=== PATIENT | male | born 1975 | race Caucasian/White ===

== ENCOUNTER 2021-03-04 03:46 | Emergency (ER) | payer MEDICAID ==
[~2021-03-04] VITALS: Ht 180.3 cm; Wt 71.4 kg
[2021-03-04 04:49] VITALS: BP 111/81
== END 2021-03-04 05:15 | disposition home or self-care (01) ==
LOC: ED 04:16
DX: H66.92 Otitis media, unspecified, left ear (principal)
CPT/HCPCS: 99283

== ENCOUNTER 2021-03-11 14:26 | Emergency (ER) | payer MEDICAID ==
[~2021-03-11] VITALS: Ht 182.9 cm; Wt 69.8 kg
[2021-03-11 14:31] VITALS: BP 129/84
--- NOTE | 2021-03-11 15:00 | NUR ---
first contact with pt. pt stated"i wanna check my left year and i feel anxiety. i wanna see psych dr for evaluation today" pt denies any physical complaints. pt denies si/hi at this time. pt's aox4. resps even and unlabored.
--- NOTE | 2021-03-11 15:50 | NUR ---
Patient given discharge instructions and they have confirmed that they understand the instructions. Patient ambulatory with steady gait.
== END 2021-03-11 15:51 | disposition home or self-care (01) ==
LOC: ED 15:44
DX: F10.10 Alcohol abuse, uncomplicated (principal); F15.10 Other stimulant abuse, uncomplicated; F41.1 Generalized anxiety disorder; F17.210 Nicotine dependence, cigarettes, uncomplicated; R94.31 Abnormal electrocardiogram [ECG] [EKG]; Z72.9 Problem related to lifestyle, unspecified; Y90.0 Blood alcohol level of less than 20 mg/100 ml
CPT/HCPCS: 93005; 99283; 99406

== ENCOUNTER 2021-03-20 16:40 | Emergency (ER) | payer MEDICAID ==
[~2021-03-20] VITALS: Ht 180.3 cm; Wt 70.0 kg
[2021-03-20 16:48] VITALS: BP 111/75
--- NOTE | 2021-03-20 18:10 | NUR ---
SEMICONDUCTOR EQUIPMENT TECHNICIAN: PT TO ROOM FROM LOBBY
== END 2021-03-20 19:38 | disposition home or self-care (01) ==
LOC: ED 19:30
DX: S93.401A Sprain of unspecified ligament of right ankle, initial encounter (principal); L03.115 Cellulitis of right lower limb; Z59.0 Homelessness; X58.XXXA Exposure to other specified factors, initial encounter; Y93.89 Activity, other specified; Y92.89 Other specified places as the place of occurrence of the external cause; Y99.8 Other external cause status
CPT/HCPCS: 99283

== ENCOUNTER 2021-03-26 14:24 | Observation (INO) | payer MEDICAID ==
[~2021-03-26] VITALS: Ht 182.9 cm; Wt 68.9 kg
[2021-03-26 14:27] VITALS: BP 126/87
--- NOTE | 2021-03-26 14:55 | NUR ---
BREAK RN- pT BROUGHT BACK FROM TRIAGE FOR SI. JASON MOLDER SWEEP AT BEDSIDE FOR EVAL.
[2021-03-26 15:36] LABS: BASOPHILS % (AUTO) 1 % (0-1); EOSINOPHILS % (AUTO) 1 % (1-7); LYMPHOCYTES % (AUTO) 32 % (22-44); MEAN CORPUSCULAR HEMOGLOBIN 30.4 pg (27.5-34.5); MEAN CORPUSCULAR HGB CONC 34.7 g/dL (33.2-36.2); MONOCYTES % (AUTO) 12 % (2-9); NEUTROPHILS % (AUTO) 54 % (42-75); PLATELET COUNT 347 x10^3/uL (130-400); RED BLOOD COUNT 4.89 x10^6/uL (4.38-5.82); RED CELL DISTRIBUTION WIDTH 12.7 % (9.4-14.8)
[2021-03-26 15:38] LABS: MD NO
[2021-03-26 15:48] LABS: ALBUMIN 3.9 g/dL (3.4-5.0); ANION GAP 5 mmol/L (5-15); CALCIUM 8.6 mg/dL (8.5-10.1); CHLORIDE 103 mmol/L (98-107); CREATININE 0.99 mg/dL (0.7-1.3); SALICYLATE LEVEL < 1.7 mg/dL (2.8-20.0)
[2021-03-26] MEDS ORDERED: TRAZODONE 100MG TABLET PO PRN (16:00)
[2021-03-26] MEDS ORDERED: FLUOXETINE HCL 20 MG CAPSULE PO SCH (16:00)
[2021-03-26] MEDS ORDERED: FLUOXETINE HCL 20 MG CAPSULE ONE (16:02)
[2021-03-26] MEDS ORDERED: TRAZODONE 100MG TABLET ONE (16:02)
--- NOTE | 2021-03-26 16:07 | NUR ---
PT PROVIDED W/ SI DINNER TRAY. PT RESTING ON [facility]. JOSE. SITTER REMAINS AT BEDSIDE. ROOM REMAINS SECURE.
[2021-03-26] MEDS ORDERED: CLON0.1T22 PO (16:20)
[2021-03-26] MEDS ORDERED: FLUO20CA19 PO (16:20)
[2021-03-26] MEDS ORDERED: TRAZ-175 PO (16:20)
[2021-03-26 16:37] LABS: AMPHETAMINE SCREEN, URINE Positive (Negative); BARBITURATE SCREEN, URINE Negative (Negative); BENZODIAZEPINE SCREEN, URINE Negative (Negative); CANNABINOID SCREEN, URINE Negative (Negative); COCAINE SCREEN, URINE Negative (Negative); METHADONE SCREEN, URINE Negative (Negative); OPIATE SCREEN, URINE Negative (Negative)
--- NOTE | 2021-03-26 17:16 | NUR ---
PT RESTING ON MALA. JOSE. SITTER REMAINS AT BEDSIDE. ROOM REMAINS SECURE.
--- NOTE | 2021-03-26 17:32 | NUR ---
REPORT GIVEN TO DENIZ, RECEIVING RN ON U. ALL QUESTIONS ANSWERED. AWAITING PT TRANSPORT.
[2021-03-26] MEDS ORDERED: CEFAZOLIN 1,000 MG ONE (17:46)
[2021-03-26] MEDS ORDERED: CEFAZOLIN 1,000 MG IM ONE (18:00)
== END 2021-03-26 18:13 | disposition home or self-care (01) ==
LOC: ED 15:26 → EDIP 16:08
PROVIDERS: ADMIT Emergency Medicine; ATTEND Emergency Medicine
DX: F32.9 Major depressive disorder, single episode, unspecified (principal); Z20.822 Contact with and (suspected) exposure to COVID-19; F15.10 Other stimulant abuse, uncomplicated; R45.851 Suicidal ideations; S61.512A Laceration without foreign body of left wrist, initial encounter; L03.115 Cellulitis of right lower limb; F41.1 Generalized anxiety disorder; F17.210 Nicotine dependence, cigarettes, uncomplicated; F12.90 Cannabis use, unspecified, uncomplicated; Z79.899 Other long term (current) drug therapy; Z91.5 Personal history of self-harm; Z59.0 Homelessness; W26.9XXA Contact with unspecified sharp object(s), initial encounter; Y93.89 Activity, other specified; Y92.89 Other specified places as the place of occurrence of the external cause
CPT/HCPCS: 36415; 80048; 80299; 80307; 80320; 80329; 82040; 85025; 87426; 96372; 99284; G0378; J0690; G0480

== ENCOUNTER 2021-03-26 16:53 | Inpatient (IN) | payer MEDICAID ==
[~2021-03-26] VITALS: Ht 182.9 cm; Wt 67.0 kg
[~2021-03-26 16:53] MED LIST: CLON0.1T22 PO; FLUO20CA19 PO; TRAZ-175 PO
[2021-03-26] MEDS ORDERED: BISACODYL 10 MG SUPP PR PRN (17:00)
[2021-03-26] MEDS ORDERED: POLYETHYLENE GLYCOL 17 GM PACKET PO PRN (17:00)
[2021-03-26] MEDS ORDERED: ONDANSETRON ODT 4 MG PO PRN (17:00)
[2021-03-26] MEDS ORDERED: DOCUSATE 100 MG CAPSULE PO PRN (17:00)
[2021-03-26 18:37] LABS: MICROSCOPIC INDICATED
[2021-03-26 19:21] VITALS: BP 111/70
[2021-03-26] MEDS: TRAZODONE 100MG TABLET PO PRN (20:38)
[2021-03-27 05:58] LABS: CHOL/HDL RATIO 2.5
[2021-03-27 07:24] VITALS: BP 114/71
[2021-03-27] MEDS: ACETAMINOPHEN 325 MG TABLET PO PRN ×2 (08:48→20:04)
[2021-03-27] MEDS ORDERED: NICOTINE 7 MG/24 HR PATCH.TD24 TD SCH (09:00)
[2021-03-27] MEDS: FLUOXETINE 10 MG CAP PO SCH (11:48)
[2021-03-27 19:47] VITALS: BP 126/77
[2021-03-27] MEDS: AMOXICILLIN/CLAV 875-125MG TABLET PO SCH (20:04)
[2021-03-27] MEDS: TRAZODONE 100MG TABLET PO PRN (20:33)
[2021-03-28 07:56] VITALS: BP 105/67
[2021-03-28] MEDS: FLUOXETINE 10 MG CAP PO SCH (09:01)
[2021-03-28] MEDS: AMOXICILLIN/CLAV 875-125MG TABLET PO SCH ×2 (09:01→20:43)
[2021-03-28] MEDS: ACETAMINOPHEN 325 MG TABLET PO PRN ×2 (09:04→12:39)
[2021-03-28 18:39] VITALS: BP 129/77
[2021-03-28] MEDS: TRAZODONE 100MG TABLET PO PRN (20:49)
[2021-03-29 07:45] VITALS: BP 116/80
[2021-03-29] MEDS: AMOXICILLIN/CLAV 875-125MG TABLET PO SCH ×2 (08:20→20:44)
[2021-03-29] MEDS: FLUOXETINE 10 MG CAP PO SCH (08:20)
[2021-03-29] MEDS: ACETAMINOPHEN 325 MG TABLET PO PRN (08:21)
[2021-03-29] MEDS: LACTOBACILLUS CHEW TABLET PO SCH ×2 (15:35→20:44)
[2021-03-29 19:52] VITALS: BP 110/72
[2021-03-29] MEDS: TRAZODONE 100MG TABLET PO PRN (20:44)
[2021-03-30 07:38] VITALS: BP 112/73
[2021-03-30] MEDS: ACETAMINOPHEN 325 MG TABLET PO PRN (08:55)
[2021-03-30] MEDS: LACTOBACILLUS CHEW TABLET PO SCH ×3 (08:56→21:16)
[2021-03-30] MEDS: FLUOXETINE 10 MG CAP PO SCH (08:56)
[2021-03-30 19:32] VITALS: BP 116/76
[2021-03-30] MEDS: TRAZODONE 100MG TABLET PO PRN (21:16)
[2021-03-31 07:45] VITALS: BP 112/74
[2021-03-31] MEDS: LACTOBACILLUS CHEW TABLET PO SCH ×3 (09:19→20:32)
[2021-03-31] MEDS: FLUOXETINE 10 MG CAP PO SCH (09:19)
[2021-03-31] MEDS: ACETAMINOPHEN 325 MG TABLET PO PRN ×2 (14:58→20:32)
[2021-03-31 19:28] VITALS: BP 110/68
[2021-04-01 07:39] VITALS: BP 104/68
[2021-04-01] MEDS: FLUOXETINE 10 MG CAP PO SCH (08:13)
[2021-04-01] MEDS: LACTOBACILLUS CHEW TABLET PO SCH ×3 (08:13→20:35)
[2021-04-01] MEDS: ACETAMINOPHEN 325 MG TABLET PO PRN (14:34)
[2021-04-01 19:30] VITALS: BP 112/70
[2021-04-01] MEDS: TRAZODONE 100MG TABLET PO PRN (21:50)
[2021-04-02 07:46] VITALS: BP 99/64
[2021-04-02] MEDS ORDERED: ACID1TAB7 PO (08:55)
[2021-04-02] MEDS ORDERED: FLUO20CA23 PO (08:55)
[2021-04-02] MEDS ORDERED: TRAZ-175 PO (08:55)
[2021-04-02] MEDS ORDERED: FLUOXETINE HCL 20 MG CAPSULE PO SCH (09:00)
[2021-04-02] MEDS: LACTOBACILLUS CHEW TABLET PO SCH (09:23)
== END 2021-04-02 09:50 | disposition home or self-care (01) | DRG 885 ==
LOC: 3E 18:24
PROVIDERS: ADMIT Psychiatry & Neurology Psychosomatic Medicine; ATTEND Psychiatry & Neurology Psychosomatic Medicine
DX: F33.2 Major depressive disorder, recurrent severe without psychotic features (principal); F15.20 Other stimulant dependence, uncomplicated; K52.1 Toxic gastroenteritis and colitis; L03.115 Cellulitis of right lower limb; L03.116 Cellulitis of left lower limb; F17.200 Nicotine dependence, unspecified, uncomplicated; F12.10 Cannabis abuse, uncomplicated; F41.9 Anxiety disorder, unspecified; T36.95XA Adverse effect of unspecified systemic antibiotic, initial encounter; Z59.0 Homelessness; Y92.89 Other specified places as the place of occurrence of the external cause
CPT/HCPCS: 36415; 71045; 80061; 81001; 86592; 86704; 86705; 86706; 86707; 86803; 87340; 87350; 87806; 93005; G0475

== ENCOUNTER 2021-05-10 12:43 | Emergency (ER) | payer MEDICAID ==
[~2021-05-10] VITALS: Ht 180.3 cm; Wt 68.6 kg
[~2021-05-10 12:43] MED LIST changes: +ACID1TAB7 PO; +FLUO20CA23 PO
[2021-05-10 13:00] VITALS: BP 116/74
--- NOTE | 2021-05-10 13:16 | NUR ---
PT AMBULATORY TO ROOM FROM TRIAGE, PT CHANGED INTO GOWN. ALL BELONGINGS DOCUMENTED AND PLACED IN LOCKED LOCKER. PT IN SAFE ENVIRONMENT. SITTER IN VIEW.
[2021-05-10 13:17] LABS: BASOPHILS % (AUTO) 1 % (0-1); EOSINOPHILS % (AUTO) 3 % (1-7); LYMPHOCYTES % (AUTO) 34 % (22-44); MEAN CORPUSCULAR HGB CONC 34.4 g/dL (33.2-36.2); MEAN PLATELET VOLUME 7.5 fL (7.4-10.4); MONOCYTES % (AUTO) 7 % (2-9); NEUTROPHILS % (AUTO) 56 % (42-75); PLATELET COUNT 226 x10^3/uL (130-400); RED BLOOD COUNT 4.66 x10^6/uL (4.38-5.82); RED CELL DISTRIBUTION WIDTH 13.4 % (9.4-14.8)
[2021-05-10 13:27] LABS: ALANINE AMINOTRANSFERASE 32 U/L (12-78); ALBUMIN 3.9 g/dL (3.4-5.0); ANION GAP 4 mmol/L (5-15); CALCIUM 8.3 mg/dL (8.5-10.1); CHLORIDE 110 mmol/L (98-107)
[2021-05-10 13:29] LABS: ALKALINE PHOSPHATASE 75 U/L (45-117); BILIRUBIN,TOTAL 0.3 mg/dL (0.2-1.0); CREATININE 0.84 mg/dL (0.7-1.3); TOTAL PROTEIN 7.1 g/dL (6.4-8.2)
[2021-05-10 13:30] LABS: SALICYLATE LEVEL < 1.7 mg/dL (2.8-20.0)
[2021-05-10] MEDS ORDERED: FLUOXETINE HCL 20 MG CAPSULE ONE (13:58)
[2021-05-10] MEDS ORDERED: FLUOXETINE HCL 20 MG CAPSULE PO SCH (14:00)
--- NOTE | 2021-05-10 14:00 | NUR ---
pt medicated per emar. sitter in view, pt in safe environment. pt coopertive with er staff
[2021-05-10 14:18] LABS: AMPHETAMINE SCREEN, URINE Positive (Negative); BARBITURATE SCREEN, URINE Negative (Negative); BENZODIAZEPINE SCREEN, URINE Negative (Negative); CANNABINOID SCREEN, URINE Positive (Negative); COCAINE SCREEN, URINE Negative (Negative); METHADONE SCREEN, URINE Negative (Negative); OPIATE SCREEN, URINE Negative (Negative)
--- NOTE | 2021-05-10 15:35 | NUR ---
SPOKE WITH [facility] [[email or web address]], STAFF EVALUATING FOR PLACEMENT AT THIS TIME.
--- NOTE | 2021-05-10 15:45 | NUR ---
BREAK RN: PT RESTING IN ROOM. NO ACUTE DISTRESS NOTED. SITTER AT DOOR.
--- NOTE | 2021-05-10 16:06 | NUR ---
BREAK RN: COVID SWAB SENT
--- NOTE | 2021-05-10 16:47 | NUR ---
PT RESTING ON GURNEY, RESPIRATIONS EVEN AND UNLABORED. NADN. PT COOPERATIVE WITH ED STAFF. SITTER IN VIEW. PT IN SAFE ENVIRONMENT.
--- NOTE | 2021-05-10 17:08 | NUR ---
PT ACCEPTED BY SHANNAN Ramsey, PENDING COVID RESULTS. L2K FAXED TO [facility] PER STAFF REQUEST.
--- NOTE | 2021-05-10 17:40 | NUR ---
PT TO [facility], REPORT GIVEN TO SANDRO
[2021-05-10] MEDS ORDERED: TRAZODONE 50MG TABLET PO PRN (21:00)
== END 2021-05-10 17:52 ==
LOC: ED 13:24
DX: R45.851 Suicidal ideations (principal); F32.9 Major depressive disorder, single episode, unspecified; F17.210 Nicotine dependence, cigarettes, uncomplicated; F12.10 Cannabis abuse, uncomplicated; F15.10 Other stimulant abuse, uncomplicated; Z20.822 Contact with and (suspected) exposure to COVID-19
CPT/HCPCS: 36415; 80053; 80299; 80307; 80320; 80329; 85025; 87635; 99285; G0480

== ENCOUNTER 2021-05-10 17:39 | Inpatient (IN) | payer MEDICAID ==
[~2021-05-10] VITALS: Ht 180.3 cm; Wt 70.1 kg
[2021-05-10] MEDS ORDERED: ACETAMINOPHEN 325 MG TABLET PO PRN (18:00)
[2021-05-10] MEDS ORDERED: NICOTINE 7 MG/24 HR PATCH.TD24 TD SCH (18:00)
[2021-05-10] MEDS ORDERED: POLYETHYLENE GLYCOL 17 GM PACKET PO PRN (18:00)
[2021-05-10] MEDS ORDERED: DOCUSATE 100 MG CAPSULE PO PRN (18:00)
[2021-05-10] MEDS ORDERED: ONDANSETRON ODT 4 MG PO PRN (18:00)
[2021-05-10 18:17] VITALS: BP 103/60
[2021-05-10] MEDS ORDERED: PLEASE ENTER HEIGHT AND WEIGHT MC SCH (18:30)
[2021-05-10 19:21] VITALS: BP 111/68
[2021-05-10] MEDS: TRAZODONE 100MG TABLET PO PRN (21:01)
[2021-05-10] MEDS: LACTOBACILLUS CHEW TABLET PO SCH (21:01)
[2021-05-10 21:47] LABS: MICROSCOPIC NOT IND
[2021-05-11 06:13] LABS: CHOL/HDL RATIO 2.4; FREE T4 (FREE THYROXINE) 0.71 ng/dL (0.76-1.46)
[2021-05-11 07:40] VITALS: BP 106/63
[2021-05-11] MEDS: LACTOBACILLUS CHEW TABLET PO SCH ×2 (08:26→08:27)
[2021-05-11] MEDS: FLUOXETINE HCL 20 MG CAPSULE PO SCH (08:26)
[2021-05-11] MEDS ORDERED: NICOTINE 7 MG/24 HR PATCH.TD24 TD SCH (09:00)
[2021-05-11 19:10] VITALS: BP 101/65
[2021-05-12 07:30] VITALS: BP 109/67
[2021-05-12] MEDS: FLUOXETINE HCL 20 MG CAPSULE PO SCH (08:26)
[2021-05-12 19:38] VITALS: BP 103/66
[2021-05-12] MEDS: TRAZODONE 100MG TABLET PO PRN (21:09)
[2021-05-13 07:04] VITALS: BP 103/66
[2021-05-13] MEDS: FLUOXETINE HCL 20 MG CAPSULE PO SCH (08:30)
[2021-05-13 19:38] VITALS: BP 105/64
[2021-05-13] MEDS: TRAZODONE 100MG TABLET PO PRN (21:03)
[2021-05-14 07:04] VITALS: BP 103/61
[2021-05-14] MEDS: FLUOXETINE HCL 20 MG CAPSULE PO SCH (09:14)
[2021-05-14 19:48] VITALS: BP 103/60
[2021-05-14] MEDS: TRAZODONE 100MG TABLET PO PRN (21:10)
[2021-05-15 07:12] VITALS: BP 102/63
[2021-05-15] MEDS: FLUOXETINE HCL 20 MG CAPSULE PO SCH ×2 (08:15→09:09)
[2021-05-15] MEDS: HYDROXYZINE PAMOATE 50MG CAP PO PRN ×2 (09:10→20:34)
[2021-05-15 18:58] VITALS: BP 114/67
[2021-05-16 07:35] VITALS: BP_SYST 113; BP_SYST 114; BP_DIAS 67; BP_DIAS 72
[2021-05-16] MEDS: FLUOXETINE HCL 20 MG CAPSULE PO SCH (08:28)
[2021-05-16] MEDS ORDERED: TRAZ-175 PO (11:39)
[2021-05-16] MEDS ORDERED: HYDR50CA2 PO (11:39)
[2021-05-16] MEDS ORDERED: CLON0.1T22 PO (11:39)
[2021-05-16] MEDS ORDERED: FLUO20CA23 PO (11:39)
[2021-05-16] MEDS: HYDROXYZINE PAMOATE 50MG CAP PO PRN (12:18)
[2021-05-16 19:32] VITALS: BP 110/74
[2021-05-17 07:31] VITALS: BP 114/55
[2021-05-17] MEDS: FLUOXETINE HCL 20 MG CAPSULE PO SCH (08:27)
== END 2021-05-17 13:01 | disposition home or self-care (01) | DRG 885 ==
LOC: 3E 17:55
PROVIDERS: ADMIT Psychiatry & Neurology Psychosomatic Medicine; ATTEND Psychiatry & Neurology Psychosomatic Medicine
DX: F33.2 Major depressive disorder, recurrent severe without psychotic features (principal); F11.20 Opioid dependence, uncomplicated; F15.20 Other stimulant dependence, uncomplicated; R45.851 Suicidal ideations; F12.10 Cannabis abuse, uncomplicated; F41.9 Anxiety disorder, unspecified; F19.10 Other psychoactive substance abuse, uncomplicated; Z56.0 Unemployment, unspecified; F17.210 Nicotine dependence, cigarettes, uncomplicated; Z79.899 Other long term (current) drug therapy; Z59.0 Homelessness; Z91.5 Personal history of self-harm
CPT/HCPCS: 36415; 71045; 80061; 81003; 84439; 84443; 93005

== ENCOUNTER 2021-06-24 21:28 | Emergency (ER) | payer MEDICAID ==
[~2021-06-24] VITALS: Ht 180.3 cm; Wt 64.4 kg
[~2021-06-24 21:28] MED LIST changes: +HYDR50CA2 PO
--- NOTE | 2021-06-24 22:31 | NUR ---
ICE APPLIED TO LEFT HAND PER ORDER. HAND ELEVATED WELL.
[2021-06-24] MEDS ORDERED: CEPHALEXIN 500 MG CAPSULE ONE (22:57)
[2021-06-24] MEDS ORDERED: SULFAMETH./TRIMETHOPRIM DS 800MG/160MG TABLET ONE (22:57)
[2021-06-24] MEDS ORDERED: DIPH,PERTUSS(ACELL),TET VAC/PF 0.5 ML IM-VACC ONE ×2 (22:58→23:00)
[2021-06-24] MEDS ORDERED: CEPHALEXIN 500 MG CAPSULE PO ONE (23:00)
[2021-06-24] MEDS ORDERED: SULFAMETH./TRIMETHOPRIM DS 800MG/160MG TABLET PO ONE (23:00)
[2021-06-24 23:06] VITALS: BP 121/85
== END 2021-06-24 23:18 | disposition home or self-care (01) ==
LOC: ED 22:10
DX: L03.114 Cellulitis of left upper limb (principal); R21 Rash and other nonspecific skin eruption; F17.210 Nicotine dependence, cigarettes, uncomplicated; Z72.9 Problem related to lifestyle, unspecified; R00.0 Tachycardia, unspecified
CPT/HCPCS: 90471; 90715; 99283; 99406

== ENCOUNTER 2021-07-29 19:55 | Emergency (ER) | payer MEDICAID ==
[~2021-07-29] VITALS: Ht 180.3 cm; Wt 68.8 kg
[2021-07-30 00:19] VITALS: BP 136/92
== END 2021-07-30 00:23 | disposition home or self-care (01) ==
LOC: ED 23:59
DX: S62.366A Nondisplaced fracture of neck of fifth metacarpal bone, right hand, initial encounter for closed fracture (principal); F17.210 Nicotine dependence, cigarettes, uncomplicated; X58.XXXA Exposure to other specified factors, initial encounter; Y93.89 Activity, other specified; Y92.89 Other specified places as the place of occurrence of the external cause; Y99.8 Other external cause status
CPT/HCPCS: 29125; 99283; 99406

== ENCOUNTER 2021-08-02 22:05 | Observation (INO) | payer MEDICAID ==
[~2021-08-02] VITALS: Ht 180.3 cm; Wt 70.4 kg
--- NOTE | 2021-08-02 23:55 | NUR ---
upon doing patients assessment, patient states that he is suicidal. provider notified and patient moved to room 3. report given to merrill ramirez
--- NOTE | 2021-08-03 | NUR ---
PATIENT PLACED IN GOWN. ALL BELONGINGS PLACED IN BAG WITH LABEL AND LOCKED AWAY. ROOM IS SAFE. SI PRECAUTIONS MAINTAINED. PATIENT DENIES NEEDS AT THIS TIME. WILL CONTINUE TO MONITOR.
[2021-08-03 00:02] LABS: BASOPHILS % (AUTO) 0 % (0-1); EOSINOPHILS % (AUTO) 2 % (1-7); LYMPHOCYTES % (AUTO) 23 % (22-44); MEAN CORPUSCULAR HEMOGLOBIN 31.6 pg (27.5-34.5); MEAN PLATELET VOLUME 7.1 fL (7.4-10.4); MONOCYTES % (AUTO) 9 % (2-9); NEUTROPHILS % (AUTO) 66 % (42-75); PLATELET COUNT 214 x10^3/uL (130-400); RED BLOOD COUNT 4.24 x10^6/uL (4.38-5.82); RED CELL DISTRIBUTION WIDTH 13.2 % (9.4-14.8)
--- NOTE | 2021-08-03 00:09 | NUR ---
PATIENT UNABLE TO PROVIDE URINE SAMPLE AT THIS TIME. PATIENT PROVIDED WITH WATER.
[2021-08-03 00:11] LABS: ALBUMIN 3.4 g/dL (3.4-5.0); ANION GAP 5 mmol/L (5-15); CALCIUM 7.8 mg/dL (8.5-10.1); CHLORIDE 106 mmol/L (98-107)
[2021-08-03 00:14] LABS: ALANINE AMINOTRANSFERASE 54 U/L (12-78); ALKALINE PHOSPHATASE 78 U/L (45-117); BILIRUBIN,TOTAL 0.5 mg/dL (0.2-1.0); CREATININE 0.73 mg/dL (0.7-1.3); TOTAL PROTEIN 6.6 g/dL (6.4-8.2)
[2021-08-03 00:21] LABS: SALICYLATE LEVEL < 1.7 mg/dL (2.8-20.0)
--- NOTE | 2021-08-03 00:49 | NUR ---
REPORT GIVEN TO JOSUÉ LAU.
--- NOTE | 2021-08-03 01:00 | NUR ---
PATIENT RESTING IN BED, EVEN-UNLABORED RESPIRATIONS NOTED. SITTER WITHIN VIEW. LIGHTS DIMMED, BED IN LOWEST LOCKED POSITION. WILL CONTINUE TO MONITOR.
--- NOTE | 2021-08-03 02:00 | NUR ---
PATIENT RESTING IN BED, EVEN-UNLABORED RESPIRATIONS NOTED. SITTER WITHIN VIEW. LIGHTS DIMMED, BED IN LOWEST LOCKED POSITION. WILL CONTINUE TO MONITOR.
--- NOTE | 2021-08-03 03:00 | NUR ---
PATIENT RESTING IN BED, EVEN-UNLABORED RESPIRATIONS NOTED. SITTER WITHIN VIEW. LIGHTS DIMMED, BED IN LOWEST LOCKED POSITION. WILL CONTINUE TO MONITOR.
--- NOTE | 2021-08-03 04:00 | NUR ---
PATIENT RESTING IN BED, EVEN-UNLABORED RESPIRATIONS NOTED. SITTER WITHIN VIEW. LIGHTS DIMMED, BED IN LOWEST LOCKED POSITION. WILL CONTINUE TO MONITOR.
--- NOTE | 2021-08-03 05:00 | NUR ---
PATIENT RESTING IN BED, EVEN-UNLABORED RESPIRATIONS NOTED. SITTER WITHIN VIEW. LIGHTS DIMMED, BED IN LOWEST LOCKED POSITION. WILL CONTINUE TO MONITOR.
--- NOTE | 2021-08-03 06:14 | NUR ---
PATIENT RESTING IN BED, EVEN-UNLABORED RESPIRATIONS NOTED. SITTER WITHIN VIEW. LIGHTS DIMMED, BED IN LOWEST LOCKED POSITION. WILL CONTINUE TO MONITOR.
--- NOTE | 2021-08-03 06:53 | NUR ---
REPORT GIVEN TO ONCOMING RN.
--- NOTE | 2021-08-03 06:58 | NUR ---
RECEIVED REPORT FROM JEISON LAU RN. PT RESTING ON [facility] [place]. NADN. MACHADOTER REMAINS AT BEDSIDE. ROOM REMAINS SECURE.
--- NOTE | 2021-08-03 08:00 | NUR ---
UA COLLECTED, LABELED AND WALKED TO LAB.
[2021-08-03 08:22] VITALS: BP 117/63
--- NOTE | 2021-08-03 08:23 | NUR ---
PT PROVIDED W/ SI BREAKFAST TRAY. NADN. VSS. PT RESTING ON GURNEY. SITTER REMAINS AT BEDSIDE. ROOM REMAINS SECURE.
[2021-08-03 08:43] LABS: AMPHETAMINE SCREEN, URINE Positive (Negative); BARBITURATE SCREEN, URINE Negative (Negative); BENZODIAZEPINE SCREEN, URINE Negative (Negative); CANNABINOID SCREEN, URINE Positive (Negative); COCAINE SCREEN, URINE Negative (Negative); METHADONE SCREEN, URINE Negative (Negative); OPIATE SCREEN, URINE Negative (Negative)
--- NOTE | 2021-08-03 09:15 | NUR ---
PT RESTING ON MALA. JOSE. SITTER REMAINS AT BEDSIDE. ROOM REMAINS SECURE.
--- NOTE | 2021-08-03 10:15 | NUR ---
PT RESTING ON MALA. JOSE. SITTER REMAINS AT BEDSIDE. ROOM REMAINS SECURE.
--- NOTE | 2021-08-03 11:02 | NUR ---
TASK RN NOTE: PT ASLEEP IN BED, AND NOTED AT THIS TIME. SITTER OUTSIDE OF ROOM FOR DIRECT OBSERVATION AND Q15 MIN SAFETY CHECKS.
--- NOTE | 2021-08-03 12:57 | NUR ---
PT PROVIDED W/ SI LUNCH TRAY. PT RESTING ON GURNEY. NADN. SITTER REMAINS AT BEDSIDE. ROOM REMAINS SECURE. PT AWARE OF POC FOR ADMIT TO U.
[2021-08-03] MEDS ORDERED: FLUOXETINE HCL 20 MG CAPSULE PO SCH (13:00)
[2021-08-03] MEDS ORDERED: TRAZODONE 50MG TABLET PO PRN (13:00)
[2021-08-03] MEDS ORDERED: HYDROXYZINE PAMOATE 50MG CAP PO PRN (13:00)
--- NOTE | 2021-08-03 13:33 | NUR ---
REPORT GIVEN TO JUSTINE BOSS RN. ALL QUESTIONS ANSWERED. AWAITING PT TRANSPORT.
== END 2021-08-03 13:56 ==
LOC: ED 08-03 00:43 → EDIP 08-03 00:46
PROVIDERS: ADMIT Emergency Medicine; ATTEND Emergency Medicine
DX: F32.9 Major depressive disorder, single episode, unspecified (principal); Z20.822 Contact with and (suspected) exposure to COVID-19; F41.1 Generalized anxiety disorder; R45.851 Suicidal ideations; F43.10 Post-traumatic stress disorder, unspecified; F15.10 Other stimulant abuse, uncomplicated; F17.210 Nicotine dependence, cigarettes, uncomplicated; Z59.0 Homelessness; Z63.8 Other specified problems related to primary support group; Z91.5 Personal history of self-harm; Z79.899 Other long term (current) drug therapy
CPT/HCPCS: 36415; 80053; 80299; 80307; 80320; 80329; 85025; 87426; 99284; G0378; G0480

== ENCOUNTER 2021-08-03 12:27 | Inpatient (IN) | payer MEDICAID ==
[~2021-08-03] VITALS: Ht 180.3 cm; Wt 68.4 kg
[2021-08-03] MEDS ORDERED: POLYETHYLENE GLYCOL 17 GM PACKET PO PRN (15:00)
[2021-08-03] MEDS ORDERED: BISACODYL 10 MG SUPP PR PRN (15:00)
[2021-08-03] MEDS ORDERED: ONDANSETRON ODT 4 MG PO PRN (15:00)
[2021-08-03] MEDS ORDERED: DOCUSATE 100 MG CAPSULE PO PRN (15:00)
[2021-08-03] MEDS ORDERED: ACETAMINOPHEN 325 MG TABLET PO PRN (15:00)
[2021-08-03 15:30] VITALS: BP 106/74
[2021-08-03] MEDS ORDERED: PLEASE ENTER HEIGHT AND WEIGHT MC SCH (16:00)
[2021-08-03 19:34] VITALS: BP 113/71
[2021-08-04 06:17] LABS: MICROSCOPIC NOT IND
[2021-08-04 07:12] LABS: CHOL/HDL RATIO 1.9; FREE T4 (FREE THYROXINE) 0.69 ng/dL (0.76-1.46); LDL/HDL RATIO 0.6 (0.5-3.0)
[2021-08-04 07:37] VITALS: BP 106/65
[2021-08-04] MEDS ORDERED: HYDROXYZINE PAMOATE 50MG CAP PO PRN (18:30)
[2021-08-04 19:30] VITALS: BP 113/73
[2021-08-05 07:18] VITALS: BP 112/73
[2021-08-05] MEDS: FLUOXETINE HCL 20 MG CAPSULE PO SCH (09:26)
[2021-08-05 18:37] VITALS: BP 112/73
[2021-08-05] MEDS: IBUPROFEN 200 MG TABLET PO PRN (18:47)
[2021-08-05] MEDS: TRAZODONE 100MG TABLET PO PRN (21:00)
[2021-08-06 07:39] VITALS: BP 120/81
[2021-08-06] MEDS: IBUPROFEN 200 MG TABLET PO PRN ×2 (07:40→15:17)
[2021-08-06] MEDS: FLUOXETINE HCL 20 MG CAPSULE PO SCH (07:40)
[2021-08-06 19:52] VITALS: BP 110/70
[2021-08-06] MEDS: TRAZODONE 100MG TABLET PO PRN (21:55)
[2021-08-07 07:38] VITALS: BP 101/65
[2021-08-07] MEDS: FLUOXETINE HCL 20 MG CAPSULE PO SCH (09:27)
[2021-08-07] MEDS: IBUPROFEN 200 MG TABLET PO PRN ×2 (10:27→20:21)
[2021-08-07 20:03] VITALS: BP 117/76
[2021-08-07] MEDS: TRAZODONE 100MG TABLET PO PRN (20:21)
[2021-08-08 06:29] VITALS: BP 126/87
[2021-08-08] MEDS: FLUOXETINE HCL 20 MG CAPSULE PO SCH (10:18)
[2021-08-08] MEDS: IBUPROFEN 200 MG TABLET PO PRN ×2 (10:21→19:58)
[2021-08-08] MEDS ORDERED: TRAZ-175 PO (12:18)
[2021-08-08] MEDS ORDERED: FLUO20CA23 PO (12:18)
[2021-08-08] MEDS ORDERED: HYDR50CA2 PO (12:18)
[2021-08-08 19:42] VITALS: BP 119/75
[2021-08-08] MEDS: TRAZODONE 100MG TABLET PO PRN (19:58)
[2021-08-09 07:41] VITALS: BP 103/75
[2021-08-09] MEDS: FLUOXETINE HCL 20 MG CAPSULE PO SCH (08:32)
== END 2021-08-09 10:55 | disposition home or self-care (01) | DRG 885 ==
LOC: 3E 14:07
PROVIDERS: ADMIT Psychiatry & Neurology Psychosomatic Medicine; ATTEND Psychiatry & Neurology Psychosomatic Medicine
DX: F31.5 Bipolar disorder, current episode depressed, severe, with psychotic features (principal); F15.20 Other stimulant dependence, uncomplicated; F17.200 Nicotine dependence, unspecified, uncomplicated; F12.10 Cannabis abuse, uncomplicated; G47.00 Insomnia, unspecified; Z79.899 Other long term (current) drug therapy
CPT/HCPCS: 36415; 80061; 81003; 84439; 84443; 86592; 86803; 87806; 93005; Q0162; G0475

== ENCOUNTER 2021-08-19 19:01 | Emergency (ER) | payer MEDICAID ==
[~2021-08-19] VITALS: Ht 180.3 cm; Wt 67.9 kg
[2021-08-19 19:03] VITALS: BP 135/86
== END 2021-08-19 19:54 | disposition home or self-care (01) ==
LOC: ED 19:45
DX: B34.9 Viral infection, unspecified (principal); Z20.822 Contact with and (suspected) exposure to COVID-19; R00.0 Tachycardia, unspecified
CPT/HCPCS: 99283; U0003; U0005